=== PATIENT | female | born 1965 | race Two or more races ===

== ENCOUNTER 2016-05-21 13:02 | Emergency (ER) | payer BC, OTHER ==
[~2016-05-21] VITALS: Ht 154.9 cm; Wt 83.5 kg
[2016-05-21 13:15] VITALS: BP 151/87
[2016-05-21 14:31] LABS: Urine Color Brown (Yellow); Urine Glucose Normal (Normal); Urine Ketone Negative (Negative); Urine Mucus FEW (None Seen); Urine RBC 1640 /hpf (0 - 4); Urine Squamous Epithelial Cell FEW /hpf (<5)
[2016-05-21 14:37] LABS: Urine Bilirubin Negative (Negative); Urine Blood 2+ /uL (Negative); Urine Nitrite POSITIVE (Negative)
[2016-05-21] MEDS ORDERED: PHENAZOPYRIDINE HCL 100 MG TAB PO ONE (15:15)
== END 2016-05-21 15:27 | disposition home or self-care (01) ==
LOC: ER 13:07
DX: N39.0 Urinary tract infection, site not specified (principal); Z87.442 Personal history of urinary calculi
CPT/HCPCS: 81001